=== PATIENT | female | born 1975 | race Two or more races ===

== ENCOUNTER 2017-01-06 12:50 | Emergency (ER) | payer SELFPAY ==
--- NOTE | 2017-01-06 13:09 | UCPHY ---
H & P Patient Type: New Time Seen by Provider: 01/06/17 12:56 HPI/ROS: CHIEF COMPLAINT: Fever, sore throat, myalgias HISTORY OF PRESENT ILLNESS: The patient presents to the urgent care with complaints of fever, sore throat myalgias for the past 2 days. The patient denies cough. She denies abdominal pain, vomiting or diarrhea. The patient denies significant past medical history aside from hypertension. REVIEW OF SYSTEMS: A comprehensive 10 point review of systems is otherwise negative aside from elements mentioned in the history of present illness. Source: Patient Exam Limitations: No limitations - Medical/Surgical History Hx Asthma: No Hx Chronic Respiratory Disease: No Hx Diabetes: No Hx Cardiac Disease: No Hx Renal Disease: No Hx Cirrhosis: No Hx Alcoholism: No Hx HIV/AIDS: No Hx Splenectomy or Spleen Trauma: No Other PMH: none - Family History Significant Family History: No pertinent family hx - Social History Smoking Status: Never smoked - Physical Exam Exam: General Appearance: Alert, no distress Eyes: Pupils equal and round no pallor or injection ENT, Mouth: Pharyngeal erythema with scant exudate noted Respiratory: There are no retractions, lungs are clear to auscultation Cardiovascular: Regular rate and rhythm Gastrointestinal: Abdomen is soft and nontender, no masses, bowel sounds normal Neurological: A&O, normal motor function, normal sensory exam, normal cranial nerves Skin: Warm and dry, no rashes Musculoskeletal: Neck is supple nontender, no meningeal symptoms Extremities: symmetrical, full range of motion Constitutional: Initial Vital Signs Temperature (C) 39.5 C H 01/06/17 13:05 Heart Rate 103 H 01/06/17 13:05 Respiratory Rate 18 01/06/17 13:05 Blood Pressure 128/79 H 01/06/17 13:05 O2 Sat (%) 94 01/06/17 13:05 O2 Delivery Mode Room Air Allergies/Adverse Reactions: No Known Allergies Allergy (Unverified 12/31/13 22:12) Home Medications: Medication Instructions Recorded Ibuprofen [Motrin (*)] 600 mg PO QID PRN #30 tab 01/06/17 Oseltamivir Phosphate [Tamiflu] 75 mg PO BID #10 cap 01/06/17 oxyCODONE/APAP 5/325 [Percocet 1 - 2 tab PO Q6-8PRN PRN #20 tab 01/06/17 5/325 (RX)] Medical Decision Making ED Course/Re-evaluation: The patient's strep test is negative. She presents to the ED with a flu-like illness. Although her rapid flu test is negative for clinical symptoms are consistent with influenza. Given the duration of her symptoms she will be treated with Tamiflu. She is encouraged to take NSAIDs and will also be given a prescription for [place]. Patient is advised to return to the ED or urgent care for markedly worsening symptoms or other concerns. The patient has no clinical evidence of meningitis or pneumonia based upon my evaluation today. The patient will be discharged home with customary aftercare instructions and return precautions. Differential Diagnosis: Differential diagnosis considered includes streptococcal pharyngitis, influenza , pneumonia, viral syndrome - Data Points Laboratory Results: 01/06/17 01/06/17 01/06/17 Unknown 13:15 13:15 Influenza Typ A,B (DFA) NEGATIVE FOR FLU (NEGATIVE) Group A Strep Screen NEGATIVE (NEGATIVE) Group A Strep DNA Pending Medications Given: Discontinued Medications Ibuprofen (Motrin) 200 mg PO EDNOW ONE Stop: 01/06/17 13:24 Last Admin: 01/06/17 13:25 Dose: 200 mg Ibuprofen (Motrin) 400 mg PO EDNOW ONE Stop: 01/06/17 13:24 Last Admin: 01/06/17 13:25 Dose: 400 mg Departure - Departure Disposition: Home, Routine, Self-Care Clinical Impression: Influenza Condition: Good Instructions: Influenza (ED) Additional Instructions: 1. Take Ibuprofen or Motrin 600 mg by mouth three times a day./[place] Ibuprofeno o Motrin 600 miligramos por boca vinay veces por nemesio 2. Percocet as needed for severe pain./Percocet [place] necesite para control de dolor maya 3. Take Tamiflu as directed for possible flu infection./[place] Tamiflu har[place] sea indicado para [place] posible infeccion de influenza Referrals: [facility],. [Clinic] - As per Instructions Prescriptions: Ibuprofen [Motrin (*)] 600 mg PO QID PRN #30 tab PRN Reason: for pain Oseltamivir Phosphate [Tamiflu] 75 mg PO BID #10 cap oxyCODONE/APAP 5/325 [Percocet 5/325 (RX)] 1 - 2 tab PO Q6-8PRN PRN #20 tab PRN Reason: for pain Print Language: Japanese - PQRS PQRS Measurement: NA
[2017-01-06 13:22] VITALS: PULSE 103
[2017-01-06] MEDS ORDERED: IBUPROFEN 200 MG TAB PO ONE ×2 (13:23)
[2017-01-06 14:18] VITALS: BP 135/90; RESP 16; TEMP 100.6; O2SAT 93
== END 2017-01-06 14:05 | disposition home or self-care (01) ==
LOC: CED 12:50
DX: R50.9 Fever, unspecified (principal); R07.0 Pain in throat; M79.1 Myalgia; I10 Essential (primary) hypertension
CPT/HCPCS: 87400-PO; 87880-PO; 99204-PO; G0463-PO

== ENCOUNTER 2018-10-17 09:05 | Emergency (ER) | payer OTHER ==
[2018-10-17] MEDS ORDERED: CARBAMIDE PEROXIDE 15 ML OTIC.BTL EACHEAR ONE (09:57)
--- NOTE | 2018-10-17 09:59 | EDPHY ---
H & P Time Seen by Provider: 10/17/18 09:11 HPI/ROS: CHIEF COMPLAINT: Fever and body aches History by patient HISTORY OF PRESENT ILLNESS: 42 old woman presents complaining of 1 week of fever and body aches. She tried taking some Tylenol for her "bone pain" and after that noticed an itchy rash all over her body which is now settled into mostly her face. She also complains of feeling swollen in her hands and her feet in her face. She denies any runny nose, cough, sore throat, nausea vomiting or diarrhea. Patient states that she saw her primary care physician for ear pain 2 weeks ago and had cerumen impaction was given some drops but her hearing is still decreased in her left ear. She would like her years checked again. Patient also notes that she was referred by her primary care physician at [facility] seen a because of an abnormal kidney test to a sebd teacher. The sebd teacher noted proteinuria and have referred her for a kidney biopsy. She is concerned that she does not need to get this biopsy. REVIEW OF SYSTEMS: As in HPI, and all other systems reviewed and are negative Smoking Status: Never smoked Physical Exam: General Appearance: Alert, nontoxic-appearing Head: normocephalic, atraumatic Eyes: Pupils equal and round, reactive to light, no pallor or injection. TM: Occluded by cerumen bilaterally Mouth: Mucous membranes moist. Oropharynx clear Neck: No bony tenderness, full range of motion Respiratory: Normal, effort, lungs are clear to auscultation. No wheezes, rales or rhonchi. Cardiovascular: Regular rate and rhythm. S1, S2, no murmurs, gallops or rubs appreciated Gastrointestinal: Abdomen is soft and nontender, no masses, bowel sounds normal. Back: No CVA tenderness, no bony tenderness Neurological: Awake, alert and oriented x 3, cranial nerves 2-12 intact, no pronator drift, normal gait, Skin: Warm and dry, positive scattered urticaria on her forehead, no other lesions. Musculoskeletal: No deformities or tenderness. Extremities: full range of motion, no obvious edema, DP2+ bilat Psychiatric: Patient has normal affect, there is no agitation. Constitutional: Initial Vital Signs Temperature (C) 37 C 10/17/18 09:14 Heart Rate 75 10/17/18 09:14 Respiratory Rate 16 10/17/18 09:14 Blood Pressure 180/98 H 10/17/18 09:14 O2 Sat (%) 97 10/17/18 09:14 O2 Delivery Mode Room Air Allergies/Adverse Reactions: No Known Allergies Allergy (Verified 10/17/18 09:14) Home Medications: Medication Instructions Recorded Lisinopril 10/17/18 MDM/Departure - MDM Medications Given: Discontinued Medications Carbamide Peroxide (Debrox) 5 drop EACHEAR EDNOW ONE Stop: 10/17/18 09:58 Last Admin: 10/17/18 10:04 Dose: 5 drop ED Course/Re-evaluation: 42-year-old woman presents with history of fever and bone pain and swelling, as well as some urticaria after taking Tylenol. We will treat her for an allergic reaction, I am recommending she follow up with an air brake tester to confirm whether this allergic reaction is actually due to acetaminophen. Patient had bilateral cerumen impaction I attempted to curette the fact that every time she could not tolerate this. Patient's ears were irrigated at her request. We discussed how her swelling may be related to her proteinuria and how this may be related to her high blood pressure and the important need to follow up with the sebd teacher and go through with with her scheduled kidney biopsy. There is no evidence of congestive heart failure or significant fluid overload or edema currently. - Depart Disposition: Home, Routine, Self-Care Clinical Impression: Body aches, Impacted cerumen of both ears Allergic reaction Qualifiers: Encounter type: initial encounter Qualified Code(s): T78.40XA - Allergy, unspecified, initial encounter Hypertension Qualifiers: Hypertension type: unspecified Qualified Code(s): I10 - Essential (primary) hypertension Condition: Fair Instructions: Urticaria (ED), Cerumen Impaction (ED) Additional Instructions: You were seen by Dr. Leslie Sifuentes today. Do not take anymore acetaminophen as this may be the cause of your hives. You may take cetirizine (Zyrtec) for itching and hives. I recommend follow up with the air brake tester to determine if your allergic reaction is due to acetaminophen. Do not clean her ear with Q-tips. Do not put anything in her ear. Continue to use ear drops to soften and break up the wax. Please follow up as scheduled with a neurologist for your kidney biopsy. Continue to take her blood pressure medicine as prescribed. Avoid ibuprofen as this may be problematic for her kidneys. Return for any worsening or new concerns. Usted fur vista por la Dra. Leslie parekh. No tome mas acetaminophen ya que esto puede causar urticaria. Usted puede usar cetirizine (Zyrtec) para la comezon y urticaria. Le recomiendo seguimiento con el alergologo para determinar shaw si reaccion alergica es debido a el acetaminophen. No se limpie el oido con Q-tips. No ponga nada en el iodo. Por favor gary seguimiento con el nefrologo para la biopsia del rinon. Continue tomando la medicina para la presion sanguinea pato se le receto. Evite ibuprofen ya que esto puede ser problematico para leni rinones. Regrese por cualquier empeoramiento o nuevas preocupaciones. Stand Alone Forms: Work Excuse Referrals: NONE *PRIMARY CARE P,. [Primary Care Provider] - As per Instructions Print Language: French
[2018-10-17 11:13] VITALS: BP 147/96
== END 2018-10-17 11:10 | disposition home or self-care (01) ==
LOC: CED 09:05
DX: R50.9 Fever, unspecified (principal); M79.10 Myalgia, unspecified site; H61.23 Impacted cerumen, bilateral
CPT/HCPCS: 99283-ER